=== PATIENT | male | born 1950 | race Caucasian/White ===

== ENCOUNTER → 2021-07-19 | Outpatient (REF) ==
[2021-07-19 12:50] LABS: POTASSIUM 3.4 mmol/L (3.5-5.1)
[2021-07-19 12:52] LABS: CALCIUM 8.1 mg/dL (8.3-10.5)
[2021-07-19 12:59] LABS: MAGNESIUM 1.98 mg/dL (1.60-2.60)
== END ==
LOC: LAB 10:30
PROVIDERS: Internal Medicine
DX: Z01.89 Encounter for other specified special examinations (principal)